=== PATIENT | male | born 1950 | race African-American/Black ===

== ENCOUNTER 2021-11-05 10:14 | Outpatient (CLI) | payer MEDICARE, MEDICAID, SELFPAY ==
--- NOTE | 2021-11-05 11:30 | NEURO_ITS ---
Impression: # Complains of pain in right hand status post neck surgery, inability to extend fingers. # Normal nerve conduction study with asymmetrical F-waves. # No Carpal Tunnel Syndrome. # Needle/EMG exam revealed neurogenic changes in extensor compartment, particularly extensor digitorum communis; could be related to damage at C6-C8; No fibrillations noted. Nerve Conduction Studies Anti Sensory Summary Table Stim Site NR Peak (ms) P-T Amp (?V) Site1 Site2 Delta-P (ms) Dist (cm) [place] (m/s) Right Median Anti Sensory (2-3nd Digit) Wrist 3.3 13.3 Wrist 2-3nd Digit 3.3 14.0 42 Wrist 3.2 17.5 Wrist 2-3nd Digit 3.3 14.0 42 Right Radial Anti Sensory (Base 1st Digit) Wrist 2.4 10.9 Wrist Base 1st Digit 2.4 0.0 Right Ulnar Anti Sensory (5th Digit) Wrist 2.9 23.5 Wrist 5th Digit 2.9 14.0 48 Motor Summary Table Stim Site NR Onset (ms) O-P Amp (mV) Site1 Site2 Delta-0 (ms) Dist (cm) Francisco (m/s) Right Median Motor (Abd Poll Brev) Wrist 3.6 2.3 Elbow Wrist 4.9 29.0 59 Elbow 8.5 4.3 Right Ulnar Motor (Abd Dig Minimi) Wrist 3.4 4.1 A Elbow Wrist 5.4 32.0 59 A Elbow 8.8 2.3 F Wave Studies NR F-Lat (ms) L-R F-Lat (ms) Right Median (Mrkrs) (Abd Poll Brev) 31.23 Right Ulnar (Mrkrs) (Abd Dig Min) 29.54 EMG Side Muscle Nerve Root Ins Act Fibs Amp Dur Recrt Comment Right 1stDorInt Ulnar C8-T1 Nml Nml Nml Nml Nml Right Ext Indicis Radial (Post Int) C7-8 Nml Nml Nml Nml Nml Right Ext Digitorum Radial (Post Int) C7-8 Nml Nml Nml Nml Nml Right BrachioRad Radial C5-6 Nml Nml Nml Nml Nml Right PronatorTeres Median C6-7 Nml Nml Nml Nml Nml Right Abd Poll Brev Median C8-T1 Nml Nml Nml Nml Nml MTDD
== END 2021-11-05 10:15 | disposition home or self-care (01) ==
LOC: ANHNEURO 10:18
PROVIDERS: Visit Provider Orthopaedic Surgery Hand Surgery
DX: M79.641 Pain in right hand (principal)
CPT/HCPCS: 95886; 95909

== ENCOUNTER 2025-07-25 01:14 | Emergency (ER) | payer MEDICARE, BC, SELFPAY ==
--- OUTSIDE RECORDS SUMMARY | 2015-06-21 05:30 | XMS_ITS | Continuity of Care Document ---
Author Organization [facility] Address [address] [place] [address] Phone Care Team Providers Care Neurosurgical Nurse Name Role Phone Unavailable Unavailable Unavailable Medications Medication Instructions Dosage Effective Dates (start - stop) Status Comments amoxicillin 500 mg capsule take 1 capsule by ORAL route every 8 hours 500 MG - Active Motrin 800 mg tablet take 1 tablet by ORAL route once with food 800 MG - Active Motrin 800 mg tablet take 1 tablet (800MG) by ORAL route every - 6 hours with food 800 MG - Active ibuprofen 800 mg tablet take 1 tablet by oral route every 6 hours with food - No Longer Active clindamycin 150 mg capsule take 1 capsule by oral route every 6 hours 150 MG - No Longer Active Procedures Procedure Date Periapical Radiographic, first Image Jun Limit oral eval problem focused 015 Limit oral eval problem focused 013 Limit oral eval problem focused 012 Periapical first film Extraction erupted tooth or exposed root Advance Directives Directive Yes / No Effective Date File Name No Information Encounters Encounter Description Practice Location Reason(s) For Visit Diagnoses Date Provider Providers Copied on Encounter [employer] [facility] , [address], [place], [place], [id number], [place] tel:[phone] [facility] Encounter for dental exam and cleaning w abnormal findingsDental caries, unspecified 5 No Information [employer] [facility] , [address], [place], [place], [id number], [place] tel:[phone] [facility] Dental examination 3 No Information [facility] , [address], [place], [place], [id number], [place] tel:[phone] [facility] [place] Dental examination 2 No Information Family History Family Member Type Diagnosis Age At Onset No Information Payers Payer name Insurance type Covered republican ID Authoriza tion(s) No Information Social History Type Description Quantity Date Captured Comments Sex Male Smoking Status No Information Chief Complaint And Reason For Visit No Information Reason For Referral Reason For Referral No Information History Of Present Illness Encounter Date Complaint History Of Prese nt Illness No Information Functional Status Date Functional Assessmen t No Information Instructions Date Instruction Additional Infor mation No Information Assessments Type Assessment Date No Information Patient Care Teams Name Effective Dates (start - stop) Status Members No Information
--- OUTSIDE RECORDS SUMMARY | 2020-08-10 12:45 | XMS_ITS | Encounter Summary ---
Author Organization 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 Hospital Encounter Self [facility] [address] [place] [address] [place] [address] [place] [address] [place] [address] [place] [address] [employer] Social History Tobacco Use Types Packs/Day Years Used Date Smoking Tobacco: Former Cigarettes 0.3 15 1 987 - 2002 Smokeless Tobacco: Never Comments:on and off Alcohol Use Standard Drinks/Week Comments Yes 16 (1 standard drink = 0.6 oz pu re alcohol) AUDIT-C Answer Date Recorded Frequency of Alcohol Consumption 2-3 times a wee k 10/28/2019 Average Number of Drinks Not on file 020 Frequency of Binge Drinking Not on file 03/2020 Sex and Gender Information Value Date Recorded Sex Assigned at Not on file Legal Sex Male 6:16 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
--- NOTE | ~2025-07-25 | CT_ITS ---
CT abdomen pelvis w con Clinical History: sacral ulcers . Comparison: None Technique: Axial images lung bases to symphysis pubis IV contrast information: 100 mL Omnipaque 350 Coronal, sagittal reformats CT images acquired with automatic exposure control for dose reduction DLP: 676 mGy-cm Findings: Lung bases: Clear. Visualized heart and pericardium: Unremarkable. Liver: Unremarkable. Gallbladder: Unremarkable. Spleen: Unremarkable. Pancreas: Unremarkable. Adrenal glands: Bilateral calcifications consistent with prior insult. Small hypodense focus left side Kidneys: Right kidney- No hydronephrosis. No renal stones. Left kidney- No hydronephrosis. No renal stones. Distal esophagus/stomach: Small sliding hiatal hernia. Small bowel loops: Normal caliber and wall thickness. Colon: Normal caliber and wall thickness. Normal RLQ appendix. Nodes: No enlarged nodes. Peritoneum: No ascites. No free air. Urinary bladder: Unremarkable. Prostate: Unremarkable. Bones: Erosions along coccyx. Soft tissues: Sacral decubitus wound with scattered subcutaneous gas and inflammation. No discrete abscess. Aorta: No aneurysm or dissection. Atherosclerotic disease. IVC: Unremarkable. Main portal vein/SMV/splenic vein: Patent. IMPRESSION: 1. Large sacral decubitus wound with soft tissue emphysema highly worrisome for infection. No associated abscess. 2. Coccygeal erosions; acute and/or chronic osteomyelitis. 3. Additional findings as above. Reviewed, dictated and finalized at [facility] R. SAWYER IMPRESSION: 1. Large sacral decubitus wound with soft tissue emphysema highly worrisome fo r infection. No associated abscess. 2. Coccygeal erosions; acute and/or chronic osteomyelitis. 3. Additional findings as above.
--- NOTE | ~2025-07-25 | XR_ITS ---
Examination: XR chest 1V portable Clinical History: weakness Comparison: None Technique: Portable AP Findings: Heart size normal. Lungs clear. Relative hyperlucency left hemithorax likely merely rotational. No acute bony abnormality. IMPRESSION: 1. No acute cardiopulmonary findings given portable technique. Reviewed, dictated and finalized at location R. FIELD WORKER
[2025-07-25 01:14] VITALS: BP 174/91; PULSE 128; RESP 21; TEMP 36.3; O2SAT 97
--- NOTE | 2025-07-25 04:56 | ECG_ITS ---
Test Date: 2025-07-25 06:31:16 Measurements Intervals [place] Rate: 119 P: 72 WV: 135 QRS: 53 QRSD: 84 T: 70 QT: 339 QTc: 478 Interpretive Statements SINUS TACHYCARDIA POSSIBLE LEFT ATRIAL ENLARGEMENT [-0.1mV P-WAVE IN V1/V2] NONSPECIFIC T-WAVE ABNORMALITY ABNORMAL RHYTHM ECG No previous ECG available for comparison Electronically Signed On 07-25-2025 06:40:51 MEDICAL EDUCATION COORDINATOR by Lorin Acuna M.D.
[2025-07-25 05:42] LABS: Hematocrit 47.5 % (42.0-52.0); Hemoglobin 15.5 g/dL (14.0-18.0); Immature Granulocyte Percent A 0.7 % (0-0.5); Lymphocytes Absolute Auto 1.01 K/mm3 (0.9-3.2); Mean Corpuscular HGB Conc 32.6 g/dl (32-36); Mean Corpuscular Hemoglobin 30.8 pg (26-34); Mean Corpuscular Volume 94.2 fl (80-100); Nucleated Red Blood Cells Absolute Auto 0.000 K/mm3 (0.0-0.012); Nucleated Red Blood Cells Perc 0.0 % (0.0-0.2); Platelet Count Result 239 k/mm3 (150-375); Red Blood Count 5.04 M/mm3 (4.6-6.20); White Blood Count 20.1 K/mm3 (4.5-10.0)
[2025-07-25 06:00] LABS: Anisocytosis 1+; Poikilocytosis 2+; Tear Drop Cells 1+
[2025-07-25 06:01] LABS: Schistocytes None Seen
[2025-07-25 06:02] LABS: Add Urine Microscopic? YES; Appearance Urine Clear (Clear); Glucose Urine UA 3+ mg/dL (Negative); Leukocyte Esterase Ur Negative LEU/UL (Negative); Need Manual Microscopic Reviewed; Nitrate Urine Negative (Negative); Specific Grav Ur 1.026 (1.001-1.035)
--- NOTE | 2025-07-25 06:10 | ED.FALL ---
HPI - Fall General Chief Complaint: Fall <Dexter Walker MD - Last Filed: 07/25/25 06:53> Stated Complaint: Fall out of w/c <Dexter Walker MD - Last Filed: 07/25/25 06:53> Time Seen by Provider: 07/25/25 05:49 <Dexter Walker MD - Last Filed: 07/25/25 06:53> History of Present Illness HPI Narrative: 74-year-old male presenting from home via EMS for concerns of a fall and not able to get up. Patient states he is wheelchair-bound and has not moved out of his wheelchair for several months. He has evidence of ulcerative tissue on his backside and in the sacrum with bleeding wounds. Patient was only down for approximately 20 minutes when he got EMS to call. Did not hit his head or lose consciousness and not any blood thinners. States he has a history of diabetes and low back pain chronically. States he occasionally gets home healthcare but they have not been coming to visit him recently. States he has been sitting in his own stool and been incontinent of urine. Endorses history of peripheral neuropathy and lymphedema making him bed/wheelchair bound. EMS report states that they were supposed to be a family preservation caseworker checking in on the patient but unknown last time he was visited her checked on. Patient endorses pain to his bottom with dried blood irritation with open sores on his sacrum and was covered in his own feces on EMS arrival. Denies any fever, chills, chest pain, shortness of breath, headache, vision change. Not taking any medications presently. <Dexter Walker MD - Last Filed: 07/25/25 06:53> Related Data Allergies/Adverse Reactions: Allergies Allergy/AdvReac Type Severity Reaction Status Date / Time No Known Allergies Allergy Verified 07/25/25 06:25 <Dexter Walker MD - Last Filed: 07/25/25 06:53> Review of Systems Review of Systems: As reviewed above in HPI <Dexter Walker MD - Last Filed: 07/25/25 06:53> Exam Narrative: GENERAL: [Well-appearing, well-nourished, and in no acute distress.] HEAD: [Normocephalic, atraumatic.] EYES: [PERRLA and EOMI.] ENT: Nares clear, no rhinorrhea or epistaxis. Mucous membranes moist. NECK: Supple. CHEST: [Clear to auscultation. No respiratory distress.] HEART: [Regular rate and rhythm]. No murmur heard. [Normal peripheral pulses.] ABDOMEN: [Soft, nondistended], [nontender], [No rigidity or guarding] EXTREMITIES: Normal range of motion. Chronic tree trunk appearing lymphedema bilaterally. SKIN: Sacral wounds with macerated tissue and bleeding edges but no purulent drainage. Covered in feces that was cleaned at bedside. Small open lateral wounds near the buttock but no purulent drainage or active bleeding. No scrotal erythema or sores. Bilateral chronic appearing lymphedema to the legs. With the tree trunk appearance to legs. NEURO: [No focal deficits]. Alert and oriented [x3.] PSYCH: [Normal mood and affect.] <Dexter Walker MD - Last Filed: 07/25/25 06:53> Course Reevaluation(s) Reevaluation #1: Patient signed out to me pending imaging, likely sepsis from decub ulcers. CT showing osteo, possibly soft tissue emphysema about the decubitus ulcer. I did personally check the wounds again, I do not feel any crepitus, patient not having severe tenderness, overall the patient does not seem consistent with necrotizing fasciitis however I did add on vancomycin to the antibiotics, and plan to transfer the patient to higher level of care/for infectious diseases. I have discussed this with the patient was agreeable, he would like to go to a [facility] facility, discussed with transfer center, accepted at [facility] by Dr. Bee. <Vicki Jordan MD - Last Filed: 07/25/25 09:47> Vital Signs Vital signs: Vital Signs Temperature 97.3 F L 07/25/25 01:14 Pulse Rate 128 H 07/25/25 01:14 Respiratory Rate 21 H 07/25/25 01:14 Blood Pressure 174/91 H 07/25/25 01:14 Pulse Oximetry 97 07/25/25 01:14 Oxygen Delivery Room Air 07/25/25 01:14 Temperature 98 F 07/25/25 07:18 Pulse Rate 124 H 07/25/25 07:18 Respiratory Rate 23 H 07/25/25 07:18 Blood Pressure 139/55 L 07/25/25 07:18 Pulse Oximetry 98 07/25/25 07:18 Oxygen Delivery Room Air 07/25/25 01:14 <Dexter Walker MD - Last Filed: 07/25/25 06:53> Vital Signs Temperature 97.3 F L 07/25/25 01:14 Pulse Rate 128 H 07/25/25 01:14 Respiratory Rate 21 H 07/25/25 01:14 Blood Pressure 174/91 H 07/25/25 01:14 Pulse Oximetry 97 07/25/25 01:14 Oxygen Delivery Room Air 07/25/25 01:14 Temperature 98 F 07/25/25 07:18 Pulse Rate 124 H 07/25/25 07:18 Respiratory Rate 23 H 07/25/25 07:18 Blood Pressure 139/55 L 07/25/25 07:18 Pulse Oximetry 98 07/25/25 07:18 Oxygen Delivery Room Air 07/25/25 01:14 <Vicki Jordan MD - Last Filed: 07/25/25 09:47> MDM - Fall MDM Narrative Medical decision making narrative: 74-year-old male presenting from home via EMS for concerns of a fall and not able to get up. Patient states he is wheelchair-bound and has not moved out of his wheelchair for several months. He has evidence of ulcerative tissue on his backside and in the sacrum with bleeding wounds. Patient was only down for approximately 20 minutes when he got EMS to call. Did not hit his head or lose consciousness and not any blood thinners. States he has a history of diabetes and low back pain chronically. States he occasionally gets home healthcare but they have not been coming to visit him recently. States he has been sitting in his own stool and been incontinent of urine. Endorses history of peripheral neuropathy and lymphedema making him bed/wheelchair bound. EMS report states that they were supposed to be a family preservation caseworker checking in on the patient but unknown last time he was visited her checked on. Patient endorses pain to his bottom with dried blood irritation with open sores on his sacrum and was covered in his own feces on EMS arrival. Denies any fever, chills, chest pain, shortness of breath, headache, vision change. Not taking any medications presently. Sacral wounds with macerated tissue and bleeding edges but no purulent drainage. Covered in feces that was cleaned at bedside. Small open lateral wounds near the buttock but no purulent drainage or active bleeding. No scrotal erythema or sores. Bilateral chronic appearing lymphedema to the legs. With the tree trunk appearance to legs. Patient is tachycardic, afebrile. Mildly tachypneic but saturating 97% on room air. Mildly hypertensive. Concern presently is for active infection given that he has been sitting in his own urine and feces and having open macerated tissues in his sacral wounds. Laboratory studies obtained, septic bundle initiated. Patient started empirically on Zosyn. Given 30 cc/kg fluid bolus of resuscitative LR and CT scan of the abdomen pelvis was obtained as well as a chest x-ray and further workup. Patient will be admitted after completion of the ER workup. Patient care signed over to morning physician Dr. Jordan pending completion of workup and admission. <Dexter Walker MD - Last Filed: 07/25/25 06:53> Medical Records Attestation: I reviewed the patient's medical records. <Dexter Walker MD - Last Filed: 07/25/25 06:53> Lab Data Attestation: I reviewed the patient's lab results. <Dexter Walker MD - Last Filed: 07/25/25 06:53> Result diagrams: 07/25/25 05:27 07/25/25 07:49 <Dexter Walker MD - Last Filed: 07/25/25 06:53> Labs: Lab Results 07/25/25 07/25/25 Range/Units 05:27 07:49 WBC 20.1 H (4.5-10.0) K/mm3 RBC 5.04 (4.6-6.20) M/mm3 Hgb 15.5 (14.0-18.0) g/dL Hct 47.5 (42.0-52.0) % MCV 94.2 (80-100) fl MCH 30.8 (26-34) pg MCHC 32.6 (32-36) g/dl RDW 12.9 (11.5-14.5) % Plt Count 239 (150-375) k/mm3 MPV 9.6 (7.4-10.4) fl Immature Gran % (Auto) 0.7 H (0-0.5) % Neut % (Auto) 85.9 H (45.5-73.1) % Lymph % (Auto) 5.0 L (18.3-44.2) % [place] % (Auto) 8.0 (2.6-8.5) % Eos % (Auto) 0.1 (0-4.4) % Baso % (Auto) 0.3 (0.2-1.2) % Lymph # (Auto) 1.01 (0.9-3.2) K/mm3 [place] # (Auto) 1.6 H (0.1-0.6) K/mm3 Eos # (Auto) 0.0 (0-0.3) K/mm3 Baso # (Auto) 0.1 (0.0-0.1) K/mm3 Abs Immat Gran (auto) 0.15 H (0.00-0.031) K/mm3 Absolute Neuts (auto) 17.2 H (1.3-6.7) K/mm3 Absolute Nucleated RBC 0.000 (0.0-0.012) K/mm3 Band Neutrophils % Not Reportable Nucleated RBC % 0.0 (0.0-0.2) % Platelet Estimate Adequate (Adequate) Large Platelets Present Poikilocytosis 2+ Anisocytosis 1+ Tear Drop Cells 1+ Schistocytes None seen PT 15.9 H (11.1-14.7) Seconds INR 1.3 APTT 30.3 (22.3-36.8) Seconds Sodium Cancelled 125 L Potassium Cancelled 4.9 Chloride Cancelled 91 L Carbon Dioxide Cancelled 22 Anion Gap Cancelled 12 BUN Cancelled 31 H Creatinine Cancelled 0.78 Estim Creat Clear Calc Cancelled 80 Estimated GFR Cancelled > 60 Glucose Cancelled 351 H Lactic Acid 3.6 H (0.7-2.0) mmol/L Calcium Cancelled 8.9 Total Bilirubin Cancelled 1.0 AST Cancelled 46 ALT Cancelled 26 Alkaline Phosphatase Cancelled 73 Total Creatine Kinase Cancelled 2457 H C-Reactive Protein 16.0 H (<1.0) mg/dL Total Protein Cancelled 6.9 Albumin Cancelled 3.4 L Urine Color Yellow (Yellow) Urine Appearance Clear (Clear) Urine pH 5.5 (5.0-9.0) Ur Specific [place] 1.026 (1.001-1.035) Urine Protein 1+ H (Negative) mg/dL Urine Glucose (UA) 3+ H (Negative) mg/dL Urine Ketones 1+ H (Negative) mg/dL Ur Blood (Man) 2+ H (Negative) Urine Nitrate Negative (Negative) Urine Bilirubin Negative (Negative) Urine Urobilinogen 1.0 (<2.0) mg/dL Add Ur Microanalysis Reviewed Leukocyte Esterase Rfl Negative (Negative) NADIYA/UL Urine RBC 0-2 (0-2) /hpf Urine WBC 0-5 (0-3) /hpf Ur Squamous Epith Cells None seen (Few) /hpf Urine Bacteria None seen /hpf Urine Casts 3-5 <Dexter Walker MD - Last Filed: 07/25/25 06:53> Lab Results 07/25/25 07/25/25 Range/Units 05:27 07:49 WBC 20.1 H (4.5-10.0) K/mm3 RBC 5.04 (4.6-6.20) M/mm3 Hgb 15.5 (14.0-18.0) g/dL Hct 47.5 (42.0-52.0) % MCV 94.2 (80-100) fl MCH 30.8 (26-34) pg MCHC 32.6 (32-36) g/dl RDW 12.9 (11.5-14.5) % Plt Count 239 (150-375) k/mm3 MPV 9.6 (7.4-10.4) fl Immature Gran % (Auto) 0.7 H (0-0.5) % Neut % (Auto) 85.9 H (45.5-73.1) % Lymph % (Auto) 5.0 L (18.3-44.2) % [place] % (Auto) 8.0 (2.6-8.5) % Eos % (Auto) 0.1 (0-4.4) % Baso % (Auto) 0.3 (0.2-1.2) % Lymph # (Auto) 1.01 (0.9-3.2) K/mm3 [place] # (Auto) 1.6 H (0.1-0.6) K/mm3 Eos # (Auto) 0.0 (0-0.3) K/mm3 Baso # (Auto) 0.1 (0.0-0.1) K/mm3 Abs Immat Gran (auto) 0.15 H (0.00-0.031) K/mm3 Absolute Neuts (auto) 17.2 H (1.3-6.7) K/mm3 Absolute Nucleated RBC 0.000 (0.0-0.012) K/mm3 Band Neutrophils % Not Reportable Nucleated RBC % 0.0 (0.0-0.2) % Platelet Estimate Adequate (Adequate) Large Platelets Present Poikilocytosis 2+ Anisocytosis 1+ Tear Drop Cells 1+ Schistocytes None seen PT 15.9 H (11.1-14.7) Seconds INR 1.3 APTT 30.3 (22.3-36.8) Seconds Sodium Cancelled 125 L Potassium Cancelled 4.9 Chloride Cancelled 91 L Carbon Dioxide Cancelled 22 Anion Gap Cancelled 12 BUN Cancelled 31 H Creatinine Cancelled 0.78 Estim Creat Clear Calc Cancelled 80 Estimated GFR Cancelled > 60 Glucose Cancelled 351 H Lactic Acid 3.6 H (0.7-2.0) mmol/L Calcium Cancelled 8.9 Total Bilirubin Cancelled 1.0 AST Cancelled 46 ALT Cancelled 26 Alkaline Phosphatase Cancelled 73 Total Creatine Kinase Cancelled 2457 H C-Reactive Protein 16.0 H (<1.0) mg/dL Total Protein Cancelled 6.9 Albumin Cancelled 3.4 L Urine Color Yellow (Yellow) Urine Appearance Clear (Clear) Urine pH 5.5 (5.0-9.0) Ur Specific [place] 1.026 (1.001-1.035) Urine Protein 1+ H (Negative) mg/dL Urine Glucose (UA) 3+ H (Negative) mg/dL Urine Ketones 1+ H (Negative) mg/dL Ur Blood (Man) 2+ H (Negative) Urine Nitrate Negative (Negative) Urine Bilirubin Negative (Negative) Urine Urobilinogen 1.0 (<2.0) mg/dL Add Ur Microanalysis Reviewed Leukocyte Esterase Rfl Negative (Negative) NADIYA/UL Urine RBC 0-2 (0-2) /hpf Urine WBC 0-5 (0-3) /hpf Ur Squamous Epith Cells None seen (Few) /hpf Urine Bacteria None seen /hpf Urine Casts 3-5 <Vicki Jordan MD - Last Filed: 07/25/25 09:47> Discharge Plan Discharge Clinical Impression: Sepsis, Sacral wound, Adult failure to thrive, Debility <Dexter Walker MD - Last Filed: 07/25/25 06:53> Patient Disposition: Still a Patient <Dexter Walker MD - Last Filed: 07/25/25 06:53> Condition: Stable <Dexter Walker MD - Last Filed: 07/25/25 06:53> Patient Language: Telugu <Dexter Walker MD - Last Filed: 07/25/25 06:53> Follow-up/Referrals: UNKNOWN,DOCTOR [Non-Staff] <Dexter Walker MD - Last Filed: 07/25/25 06:53>
--- OUTSIDE RECORDS SUMMARY | 2025-07-25 06:17 | XMS_ITS | Encounter Summary ---
Author Organization [facility] Healthcare Address [address] [place] [address] Care Team Providers Care Casting Technician Name Role Phone Jason Haas MD Primary Care Provider Elvira Hernandez NP Unavailable Alyssa Milligan RN Unavailable [phone] Reason for Visit * Reason Onset Date Comments Medical Question/Miscellaneous 07/07/2025 Encounter Details Date Type Department Care Team (Late st Contact Info) Description 07/07/2025 Telephone [facility] Medical Group Primary Care at [address] [address] Jason Haas MD [address] [place] [address] [address] [place] [address] Medical Question/Miscellaneous Social History Tobacco Use Types Packs/Day Years Used Date Smoking Tobacco: Former Smokeless Tobacco: Never OASIS D0700: Social Isolation Answer Da te Recorded Frequency of experiencing loneliness or isolatio n Never 09/29/2024 OASIS A1250: Transportation Answer Date Recorded Lack of Transportation (Medical) No 09/29/2024 Lack of Transportation (Non-Medical) No 09/29/2024 Patient Unable or Declines to Respond No 09/29/2024 OASIS B1300: Health Literacy Answer Rc e Recorded Frequency of needing help to read materials from doctor or pharmacy Never 09/29/2024 [facility] Utilities Answer Date Recorded In the past 12 months has th e electric, gas, oil, or water [employer] threatened to shut off services in your home? No 04/18/2025 Social Connection and Isolation Panel Answer Date Recorded In a typical week, how many times do you talk on the phone with family, friends, or neighbors? More than three times a week 04/18/2025 How often do you get togethe r with friends or relatives? More than three times a week 04/18/2025 How often do you attend chur ch or alevism services? Never 04/18/2025 Do you belong to any clubs o r organizations such as mandaeism groups, unions, fraternal or athletic groups, or school groups? No 04/18/2025 How often do you attend meet ings of the clubs or organizations you belong to? Never 04/18/2025 Are you , , di vorced, , never , or living with a partner? Never 04/18/2025 AUDIT-C Answer Date Recorded Q1: How often do you have a drink containing alc ohol? 2-3 times a week 03/21/2021 Q2: How many drinks containi ng alcohol do you have on a typical day when you are drinking? 1 or 2 03/21/2021 Q3: How often do you have si x or more drinks on one occasion? Never 03/21/2021 Overall Financial Resource Strain (CARDIA) Answe r Date Recorded How hard is it for you to pa y for the very basics like food, housing, medical care, and heating? Not very hard 04/18/2025 PHQ-2 Answer Date Recorded PHQ-2 Total Score (If total score is 3 or more points, staff should administer the PHQ-9) 0 02/28/2025 Hunger Vital Sign Answer Date Recorded Within the past 12 months, y ou worried that your food would run out before you got the money to buy more. Never true 04/18/20 25 Within the past 12 months, t he food you bought just didn't last and you didn't have money to get more. Never true 04/18/2025 PRAPARE - Transportation Answer Date Re corded In the past 12 months, has l ack of transportation kept you from medical appointments or from getting medications? No 03/22 In the past 12 months, has l ack of transportation kept you from meetings, work, or from getting things needed for daily living? No 04/18/2025 Housing Stability Vital Sign Answer Rc e Recorded In the last 12 months, was t here a time when you were not able to pay the mortgage or rent on time? No 04/18/2025 In the past 12 months, how m any times have you moved where you were living? 0 04/18/2025 At any time in the past 12 m [facility], were you homeless or living in a senior living (including now)? No 04/18/2025 Sex and Gender Information Value Date Recorded Sex Assigned at Not on file Legal Sex Male 9:54 AM CDT Gender Identity Not on file Sexual Orientation Not on file documented as of this encounter Miscellaneous Notes * Telephone Encounter - Amy Serna - 07/07/2025 9:19 AM CDT Medical Question/Miscellaneous Caller???s Concern: Patient called regarding receiving letter for no show, patient stated he didn'tknow his appointments wasn't cancelled, patient stated he had a Health Care Worker and she was suppose to cancel his appointment, patient stated the worker hasn't showed up for work in two weeks patient stated he's been having issues as well she was suppose to excelsior picker his medication and it took herthree weeks to get his medication, AC offered to reschedule missed appointment, patient stated he doesn't have a worker he will call back to reschedule once he receives a new Health Care Worker, please advise. Does message need to be routed? Yes-FYI Only documented in this encounter Plan of Treatment Not on file documented as of this encounter Goals Goal Patient Goal Type Associated Problems Recent Progress Patient-Stated? Author Diabetes Goal - Patient verbalizes knowledge and ability to manage diabetes ACO Care Management Alyssa De La Torre, RN Note: Problem: Knowledge deficit - Diabetes Interventions: - Provide educational materials specific to patient needs. Search Epic Clinical References for patient-specific educational needs. These can be printed & mailed or sent to patient via [employer]. - Review Diabetes folder in Teams for applicable resources. - Follow up within 1-2 weeks of mailing to review materials and ensure patient understands information provided. Diabetes Goal - Patient is knowledgeable about causes of hyperglycemia and how to prevent and treat the problem ACO Care Management Alyssa De La Torre, RN Note: Problem: Red Flag education needed - Hyperglycemia Interventions: - Provide education on common causes of hyperglycemia: skip dose of diabetic medicine, eat more than usual, are less active than usual, are under stress or sick. - Provide education on common symptoms of hyperglycemia: excessive thirst, excessive hunger, increased urination, sleepiness, blurry vision, slow healing. - Assess patient's specific reasons for hyperglycemia and barriers to following diabetic regimen, if applicable. - Review diabetes red flags related to recognizing and reporting blood sugars >250 for 2 consecutive days or for 2 consecutive readings in a row. - Review patients diabetes care plan and medication orders with patient. Outreach to provider to obtain diabetes plan if patient is unsure or if there are any medication discrepancies. Ensure patient is taking the correct amount of medication/insulin. - Review [facility] Clinical References: Diabetic Hyperglycemia; Type 2 Diabetes in Adults; Type 2 Diabetes in the Older Adult. These can be printed and mailed or sent to patient via [employer]. - Review the Diabetes folder in teams for available resources: High Blood Sugar Fact Sheet. Diabetes Goal - Patient is knowledgeable about causes of hypoglycemia and how to prevent and treat the problem ACO Care Management Alyssa De La Torre, RN Note: Problem: Red Flag education needed - Hypoglycemia Interventions: - Provide education on common causes of hypoglycemia: take diabetic medicine without eating enough, take too much diabetic medicine, are more active than usual. - Provide education on common symptoms of hypoglycemia: Shakiness, Sweatiness, Dizziness, hunger, sudden behavior change, weakness, sleepiness, headache, nervousness. - Provide education on home treatments for hypoglycemia: 1. Eat or drink something with 15 grams of carbs (4oz juice, 4 glucose tablets, or candies) 2. Recheck blood sugar in 15 minutes. If still low, eat another 15 grams of carbs - Assess patient's specific reasons for hypoglycemia and barriers to following diabetic regimen, if applicable. - Review importance of identifying repeated hypoglycemic episodes and reporting to their provider / CM. - Review patients' diabetes care plan and medication orders with patient. Outreach to provider to obtain diabetes plan if patient is unsure or if there are any medication discrepancies. - Review [facility] Clinical References: Hypoglycemia in a Person with Diabetes; Type 2 Diabetes in Adults; Type 2 Diabetes in the Older Adult. These can be printed and mailed or sent to patient via [employer]. - Review the Diabetes folder in teams for available resources: Low Blood Sugar Fact Sheet. Diabetes Goal - Coordination with diabetes provider will help improve patient self management status ACO Care Management Alyssa De La Torre RN Note: Problem: Diabetes Nonadherence: Notify Provider Interventions: - Create a Telephone encounter with documentation of the problem and possible solutions (if applicable). - Route the telephone encounter to Clinical Pool & yourself (.me) to allow monitoring of the message. - Follow up with patient with any provider instructions. - Update plan of care as necessary. Diabetes Goal - Patient is knowledgeable about managing diabetes during sick days, when worsening and how to respond ACO Care Management Alyssa De La Torre, RN Note: Problem: Red Flag education needed - Sick Day Rules Interventions: - Assess patient status: signs & symptoms of sickness, blood sugar range while sick, what patient has been doing so far to manage sickness at home. - Provide education for when to call your care team: Blood sugar <70, Blood sugar >240 for >6 hours, you can't eat or drink for 4 hours, fever 101.5 or higher, symptoms of severe stomach pain, chest pain or difficulty breathing, vomiting or diarrhea for >6 hours, or your illness lasts more than 24 hours. - Review sick day rules: Check blood sugar every 2-4 hours or more often if readings are increasing rapidly. Continue to take your diabetes medications, even if you are having nausea or vomiting. Be sure to notify provider if you are unable to keep anything down for over 4 hours. Drink extra fluids (no caffeine), about 8oz every hour. Examples are fruit juice, clear soup or sports drinks. Try to eat your normal amounts and types of foods. If not possible, try to eat foods that are gentle on the stomach, like crackers, gelatin, applesauce, toast. Do not take OTC medications without discussing with your provider. - Review the following [facility] Clinical References: Managing Diabetes During Sick Days. This can be printed and mailed or sent to patient via [employer]. Diabetes Goal - Patient will obtain and follow a diabetic action plan ACO Care Management Alyssa De La Torre RN Note: Problem: Inadequate health maintenance related to absence of diabetes action plan Interventions: - Refer to the Diabetes Folder in teams: [facility] Action Plan DM Flyer. Review contents with patient. Send to patient/caregiver via mail or [employer]. - Provide education regarding signs of low and high blood sugar and how patient should respond to both situations. Diabetes Goal - Patient will improve their knowledge of DM and will be motivated to try to better manage at home ACO Care Management Alyssa De La Torre RN Note: Problem: Ability to self-manage diabetes Interventions: - Assess ability to self manage: check blood sugars, administer/take medications, monitor for red flags, adhere to prescribed diet, and perform physical activity as able. - Assess for barriers to care and provided education/resources needed. - Encourage patient to log their blood sugar results and review for trends. - Refer to [facility] Clinical References: How to Check Your Blood Sugar; Type 2 Diabetes Management for Adults; Diabetes Type 1: Management; Diabetic Hyperglycemia; etc. These can be printed & mailed or sent to patient via [employer]. - Refer to Diabetes folder in Teams: Blood Sugar Log; Checking Your Blood Sugar; Living Well With Diabetes; When to Call the Doctor, etc. Diabetes Goal - Patients' medication adherence will improve with applicable education/resources ACO Care Management Alyssa De La Torre, ROSARIO Note: Problem: Diabetes Medication Nonadherence Interventions: - Assess barriers to following the prescribed medication plan. Provide education/resources to reduce these barriers. - Review the Diabetes folder in Teams for available educational resources for this patient. - Refer to [facility] Clinical References: Type 2 Diabetes Management in Adults or Type 2 Diabetes in Older Adults; Non Insulin Pen Devices for Diabetes, etc. These can be mailed to patient or sent to their MyChart (if applicable). - Schedule follow-up call to review these materials to ensure understanding. - Make a plan with the patient to improve medication adherence. - Notify provider if patient continues this nonadherent behavior. Diabetes Goal - Patient will verbalize understanding of the education provided regarding Diabetic Medications ACO Care Management Alyssa De La Torre RN Note: Problem: Knowledge Deficit - Diabetic Medications Interventions: - Assess patients' knowledge of diabetic medications to identify gaps in knowledge. - Provide educational materials specific to patient needs. Search Epic Clinical References for patient-specific educational needs. These can be printed & mailed or sent to patient via [employer]. - Review the Diabetes folder in Teams for available resources: Medications and Prescription Savings Programs Folder. - Schedule follow-up calls to review these materials with patient to ensure understanding. ACO CC Goal - Patient will increase compliance with prescribed medications ACO Care Management Alyssa De La Torre RN Note: Problem: Medication non-adherence Interventions: - Address any barriers to taking medications as ordered. Coordinate with appropriate personnel (SW, physician, pharmacist, etc.) to help increase compliance with medication regimen. - Review with patient/caregiver the medication schedule in detail. - Review when to call their physician for potential medication complications and ensure they verbalize understanding of instructions. RITA General Goal - Patient / caregiver verbalizes lifestyle changes necessary to meet self-care needs and executes self-care activities to utmost capability ACO Care Management Alyssa De La Torre RN Note: Problem: At Risk for Self Care Deficit Interventions: - Assess patient's level of dependence on others along with current level of assistance being provided. - Use motivational interviewing to help guide the patient in accepting the needed amount of assisstance, as applicable. - Contact caregiver and assess their involvement with patient and level of assistance provided, as appropriate. - Assess appropriateness for Home Health. Start referral process if skilled need is present. - Encourage independent ADL's as appropriate. Ensure patient has the appropriate tools at home to be as independent as possible. - Provide fall prevention education to patient and caregiver. - Evaluate need for assistive devices. - Refer to if appropriate and patient is agreeable. RITA General Goal - Patient is knowledgeable about condition when worsening and how to respond ACO Care Management No Cunneen, Alyssa Quincy, RN Note: Problem: Knowledge deficit related to signs and symptoms of worsening condition Interventions: - Assess patient's level of understanding related to their condition(s), specific medications and self-management of their chronic conditions. - Send educational materials to patient related to their chronic condition, including signs and symptoms, self-management actions, and serious symptoms that require urgent medical intervention. - Assist patient/provider in developing an action plan for symptom management. - Review with patient weekly: s/s worsening condition, self-management actions to take, when to call CM or provider. ACO CC Goal - Patient verbalizes adherence to diet at least 80% of the time ACO Care Management No Alyssa Milligan, ROSARIO Note: Problem: At risk for inadequate nutrition related to nonadherence to prescribed diet Interventions: - Assess patient's level of understanding related to the prescribed diet - Assess patient's ability to obtain diet-specific foods and prepare meals - Provide verbal education regarding the prescribed diet - Provide education on healthy eating habits, portion control and importance of a balanced diet - Provide resources as applicable - Refer to O Director [employer] as appropriate documented as of this encounter Visit Diagnoses Not on filedocumented in this encounter Care Teams Casting Technician Relationship Specialty Start Date End Date Jason Haas MD [address] [facility] [address] [place] [address] PCP - General Family Medicine 06/03/24 Elvira Hernandez NP [address] [facility] [address] [place] [address] Nurse Practitioner Family Medicine 06/03/24 Alyssa Milligan RN [address] [place] [address] [address] [place] [address] Market Research Interviewer 04/14/25 documented as of this encounter
--- OUTSIDE RECORDS SUMMARY | 2025-07-25 06:17 | XMS_ITS | Clinical Summary ---
Author Organization [facility] HealthCare Care Team Providers Care Supplemental Nurse Name Role Phone Jason Haas MD Primary Care Provider Elvira Hernandez NP Unavailable Alyssa Milligan RN Unavailable [phone] Allergies No known active allergies Medications rosuvastatin (CRESTOR) 20 mg tabletIndications: hyperlipidemia Take 1 tablet (20 mg total) by mouth daily 90 tablet 1 06/28/20 24 Active polyethylene glycol (MIRALAX) 17 gram/dose bulk powderIndications: constipation Take 17 g by mouth daily as needed (constapation) Active candesartan (ATACAND) 8 mg tabletIndications: Hypertension associated with diabetes (HCC) Take 1 tablet (8 mg total) by mouth daily 30 tablet 11 08/02/20 24 025 Active baclofen (LIORESAL) 10 mg tablet Take 1 tablet (10 mg total) by mouth 3 (three) times a day 90 tablet 11 11/25/19 25 026 Active Additional Information Patient not taking.Reported on 04/18/2025 gabapentin (NEURONTIN) 300 mg capsule Take 1 capsule (300 mg total) by mouth 3 (three) times a day 90 capsule 5 11/25/19 25 Active olopatadine (PATANOL) 0.1 % ophthalmic solutionIndication s:Allergic Conjunctivitis Administer 1 drop into both eyes 2 (two) times a day as needed for allergies 15 mL 4 02/29/20 25 026 Active metFORMIN XR (GLUCOPHAGE XR) 500 mg 24 hr tabletIndications: type 2 diabetes mellitus Take 2 tablets (1,000 mg total) by mouth daily with breakfast 02/29/20 25 026 Active nut.tx.gluc.intol, lac-free,soy liquid Drink one can of Glucerna 6 times a day. 8am, 10am, 12pm, 2pm, 4pm, 6pm 237 mL 11 03/15/20 25 124 Active Additional Information Patient not taking.Reported on 04/18/2025 empagliflozin (Jardiance) 10 mg tabletIndications: Hypertension associated with diabetes (HCC) Take 1 tablet (10 mg total) by mouth daily 90 tablet 06/07/20 25 Active ascorbic acid (VITAMIN C) 500 mg tablet,chewableInd ications:Vitamin C Deficiency Take 1 tablet/chew tab (500 mg total) by mouth daily 06/06/20 24 025 Discontin ued(Thera py completed ) Active Problems Problem Noted Date Diagnosed Date Severe obesity 11/28/2024 Encounter for Medicare annual wellness exam 07/22 Assessment & Plan (08/02/2024 2:44 PM MINER HELPER): A(n) initial Annual [employer] Visit has been performed today. Kb Guillory is not up to date on screening tests. He is in need of Prostate screening, AAA Screening, and Colon cancer screening. He is not up to date on needed preventative vaccinations; He is in need of Zoster. We discussed healthy lifestyle habits, educational material has been given. Medications reviewed, changes documented as per the medical record and discussed with patient along with risks vs benefits. Specific topics reviewed: drugs, ETOH, and tobacco, importance of regular dental care, importance of regular exercise, importance of varied diet, limit TV, media violence, minimize junk food, and seat belts. Return in 3 months Encounter for medical examination to establish c are 08/19/2023 Cervical radiculopathy 12/30/2021 Hand cramps 11/11/2021 Type 2 diabetes mellitus without complications 0 06/20/2021 Assessment & Plan (06/03/2024 10:47 AM CDT): No medications on board, patient unsure of last A1c. Labs ordered. Cervical disc disorder with myelopathy of mid-cervical region 03/21/2021 Assessment & Plan (06/03/2024 3:34 PM CDT): Referral to home health for PT/OT. Also may benefit from Physical Medicine as mentioned in the Neurosurgeon's note from 2020. Referral placed. Patient has a mobility limitation that significantly impairs ability to participate in one or more mobility-related activities of daily living (MRADLs) such as toileting, feeding, dressing, grooming, and bathing in customary locations in the home. Patient's mobility limitation cannot be sufficiently resolved by the use of an appropriately fitted cane or walker. Use of a manual wheelchair will significantly improve the patient's ability to participate in MRADLs and the patient will use it on a regular basis in the home. Patient has a caregiver who is available, willing, and able to provide assistance with the wheelchair. Hyperlipidemia 03/19/2021 BMI 33.0-33.9,adult 01/02/2021 Preventative health care 01/02/2021 Hyponatremia 12/25/2020 Lipedema of lower extremity 11/26/2020 Multiple complications of type 2 diabetes [facility] 11/26/2020 Fall 08/02/2020 Myelopathy 08/01/2020 Hypertension associated with diabetes 02/17/2018 Assessment & Plan (06/03/2024 10:47 AM CDT): BP stable in office, no medication on board. Updated labs ordered Low back pain 02/17/2018 Low back pain with right-sided sciatica 12/19/19 15 Spondylolisthesis of lumbar region 12/18/2014 Assessment & Plan (06/03/2024 3:34 PM CDT): Referral to home health for PT/OT. Also may benefit from Physical Medicine as mentioned in the Neurosurgeon's note from 2020. Referral placed. Patient has a mobility limitation that significantly impairs ability to participate in one or more mobility-related activities of daily living (MRADLs) such as toileting, feeding, dressing, grooming, and bathing in customary locations in the home. Patient's mobility limitation cannot be sufficiently resolved by the use of an appropriately fitted cane or walker. Use of a manual wheelchair will significantly improve the patient's ability to participate in MRADLs and the patient will use it on a regular basis in the home. Patient has a caregiver who is available, willing, and able to provide assistance with the wheelchair. Encounters Date Type Department Care Team Description 07/19/2025 Telephone [facility] Primary Care at [address] [phone] Jason Haas MD Additional Services Or Orders 07/07/2025 Telephone [facility] Primary Care at [address] [phone] Jason Haas MD Medical Question/Miscellaneous 06/21/2025 [facility] [address] [phone] Daniela Pat MA 06/07/2025 [facility] Primary Care at [address] [phone] Jason Haas MD Additional Services Or Orders; Medical Question/Miscellaneous 05/31/2025 [facility] Primary Care at [address] [phone] Jason Haas MD Medication Request 05/31/2025 [facility] Primary Care at [address] [phone] Jason Haas MD Recommendation Request 05/25/2025 [facility] [address] [address] Mirella Lai MA from Last 3 Months Immunizations Immunization Administration Dates Next Due DTaP 11/03/2007 Hep A / Hep B 07/07/2017,01/04/2017,12/07/2016 Influenza, Quadrivalent, Hig h Dose, Preservative Free, Intrr 08/07/2020 Influenza, Trivalent, High D ose, Split, Preservative Free, Intramuscular 08/02/2024 Influenza, Unspecified 09/21/2023(Deferr ed: Patient Refused),09/21/2022(Deferred: Patient Refused) Pneumococcal Conjugate PCV 13 08/20/2021 Pneumococcal Conjugate Pcv20 08/02/2024 Tdap 12/07/2016 Surgical History Surgery Date Site/Laterality Comments NECK SURGERY 08/06/2020 Medical History Medical History Date Comments Type 2 diabetes mellitus Hypertension Quadriplegia, C5-C7 incomplete (HCC) Family History Medical History Relation Name Comments Stomach cancer Father Diabetes Mother Relation Name Status Comments Father Mother Social History Tobacco Use Types Packs/Day Years Used Date Smoking Tobacco: Former Smokeless Tobacco: Never Tobacco Cessation:Counseling Given: No OASIS D0700: Social Isolation Answer Da te [...] materials from doctor or pharmacy Never 09/29/2024 [facility] Utilities Answer Date Recorded In the past 12 months has e [employer], gas, oil, or water [employer] threatened to shut off services in your [...] often do you attend chur ch or gnosticism services? Never 04/18/2025 Do you belong to any clubs o r organizations such as latter-day groups, unions, fraternal or athletic groups, or [...] any time in the past 12 m [facility], were you homeless or living in a snf (including now)? No 04/18/2025 Sex and Gender Information Value Date Recorded Sex Assigned at Not on file Legal Sex Male 9:54 AM CDT Gender Identity Not on file Sexual Orientation Not on file Last Filed Vital Signs Vital Sign Reading Time Taken Comments Blood Pressure 130/88 02/28/2025 1:06 PM CDT Pulse 92 02/28/2025 1:06 PM CDT Temperature 36.9 C (98.4 F) 02/28/2025 1:06 PM CDT Respiratory Rate 18 02/28/2025 1:06 PM CDT Oxygen Saturation 98% 02/28/2025 1:06 PM CDT Inhaled Oxygen Concentration - - Weight 109.8 kg (242 lb) 11/24/2024 1:40 PM MINER HELPER Height 166.6 cm (5' 5.6) 02/28/2025 1:06 PM CDT Body Mass Index 38.48 11/24/2024 1:40 PM MINER HELPER Plan of Treatment Health Maintenance Due Date Last Done Comments Influenza Vaccine (#1) 2025 08/02/2024, 2019 Albumin Creatinine Ratio, Urine 06/03/2025 06/03/2024 Foot Exam 06/03/2025 06/03/2024 Well Visit 65+ 08/02/2025 08/02/2024 Hemoglobin A1C 08/30/2025 02/28/2025, 03/, 08/02/2024, Additional history exists Lipid Panel 11/28/2025 11/28/2024, 06/03/2024 Zoster Vaccine (1 of 2) 11/28/2025 Post poned from 2000 (Insurance / Financial) eGFR 11/28/2025 11/28/2024, 06/03/2024 Depression Screening 02/28/2026 02/28/2025, 11/28/2024, 08/02/2024, Additional history exists Fall Risk Assessment 02/28/2026 02/28/2025, 08/02/2024, 06/03/2024 Dilated Eye Exam 04/06/2026 04/06/2025 Covid-19 Vaccine ( season) 2026 10/17/2021, 09/06/2021 Postponed from 05/22/2025 (Patient declined, but will receive in the future) Prostate Cancer Screening-PSA 11/28/2026 11/28/2024 DTaP/Tdap/Td Vaccine (3 - Td or Tdap) 12/07/2026 12/07/2016, 11/03/2007 Colon Cancer Screening-Colonoscopy 07/27/2028 Hepatitis B Screening Completed 07/07/2017 , 01/04/2017, 12/07/2016 Hepatitis C Screening Completed 06/03/2024 Pneumococcal vaccine 65+ Completed 08/02/2024, 07/24 Abdominal Aortic Aneurysm (AAA) Screen Completed 03/16/2025 Goals Goal Patient Goal Type Associated Problems Recent Progress Patient-Stated? Author Diabetes Goal - Patient verbalizes knowledge and ability to manage diabetes ACO Care Management Alyssa De La Torre RN Note: Problem: Knowledge deficit - Diabetes Interventions: - Provide educational materials specific to patient needs. Search [facility] Clinical References for patient-specific educational needs. These can be printed & mailed or sent to patient via [employer]. - Review Diabetes folder in Teams for applicable resources. - Follow up within 1-2 weeks of mailing to review materials and ensure patient understands information provided. Diabetes Goal - Patient is knowledgeable about causes of hyperglycemia and how to prevent and treat the problem ACO Care Management Alyssa De La Torre RN Note: Problem: Red Flag education needed [...] correct amount of medication/insulin. - Review [facility] Clinical References: Diabetic Hyperglycemia; Type 2 Diabetes in Adults; Type 2 Diabetes in the Older Adult. These can be printed and mailed or sent to patient via [employer]. - Review the Diabetes folder in teams [...] there are any medication discrepancies. - Review Epic Clinical References: Hypoglycemia in a Person with Diabetes; Type 2 Diabetes in Adults; Type 2 Diabetes in the Older Adult. These can be printed and mailed or sent to patient via [employer]. - Review the Diabetes folder in teams [...] respond ACO Care Management Alyssa De La Torre RN Note: Problem: Red Flag education needed [...] your provider. - Review the following [facility] Clinical References: Managing Diabetes During Sick Days. This can be printed and mailed or sent to patient via [employer]. Diabetes Goal - Patient will obtain and follow a diabetic action plan ACO Care Management Alyssa De La Torre RN Note: Problem: Inadequate health maintenance related to absence of diabetes action plan Interventions: - Refer to the Diabetes Folder in teams: [facility] Action Plan DM Flyer. Review contents with patient. Send to patient/caregiver via mail or [employer]. - Provide education regarding signs of low [...] review for trends. - Refer to [facility] Clinical References: How to Check Your Blood Sugar; Type 2 Diabetes Management for Adults; Diabetes Type 1: Management; Diabetic Hyperglycemia; etc. These can be printed & mailed or sent to patient via [employer]. - Refer to Diabetes folder in Teams: Blood Sugar Log; Checking Your Blood Sugar; Living Well With Diabetes; When to Call the Doctor, etc. Diabetes Goal - Patients' medication adherence will improve with applicable education/resources ACO Care Management Alyssa De La Torre RN Note: Problem: Diabetes Medication Nonadherence Interventions: - Assess barriers to following the prescribed medication plan. Provide education/resources to reduce these barriers. - Review the Diabetes folder in Teams for available educational resources for this patient. - Refer to [facility] Clinical References: Type 2 Diabetes Management [...] educational materials specific to patient needs. Search [facility] Clinical References for patient-specific educational needs. These can be printed & mailed or sent to patient via [employer]. - Review the Diabetes folder in Teams for available resources: Medications and Prescription Savings Programs Folder. - Schedule follow-up calls to review these materials with patient to ensure understanding. ACO CC Goal - Patient will increase compliance with prescribed medications ACO Care Management Alyssa De La Torre, ROSARIO Note: Problem: Medication non-adherence Interventions: - Address [...] need for assistive devices. - Refer to SW if appropriate and patient is agreeable. RITA General Goal - Patient is knowledgeable about condition when worsening and how to respond ACO Care Management Alyssa De La Torre, RN Note: Problem: Knowledge deficit related to [...] 80% of the time ACO Care Management Alyssa De La Torre, RN Note: Problem: At risk for inadequate nutrition [...] resources as applicable - Refer to O Maintenance Supervisor 2Nd Shift as appropriate Procedures Procedure Name Priority Date/Time Associated Diagnosis Comments DIABETES EYE EXAM Routine 04/06/2025 ABDOMINAL AORTIC ANEURYSM SCREENING Schedule Routine, Read Routine (OP Routine) 03/16/2025 10:19 AM CDT Encounter for abdominal aortic aneurysm (AAA) screening POCT HEMOGLOBIN A1C Routine 02/28/2025 1:32 PM CDT Multiple complications of type 2 diabetes mellitus (HCC) EGFR Routine 11/28/2024 2:09 PM CDT Hypertension associated with diabetes (HCC) LIPID PANEL Routine 11/28/2024 2:09 PM CDT Hypertension associated with diabetes (HCC) PSA SCREEN Routine 11/28/2024 2:09 PM CDT Screening PSA (prostate specific antigen) HEPATITIS C ANTIBODY Routine 06/03/2024 9:57 AM CDT Need for hepatitis C screening test ALBUMIN CREATININE RATIO, URINE Routine 06/03/2024 9:57 AM CDT Type 2 diabetes mellitus without complication, without long-term current use of insulin (HCC) from Last 3 Months or Most Recently Relevant to Health Maintenance Results * DIABETES EYE EXAM (04/06/2025) Historical Provider HEALTH MAINTENANCE Final Result * US Abdominal Aortic Aneurysm Screening (03/16/2025 10:19 AM CDT) Anatomical Region Laterality Modality Abdomen Ultrasound Jason Haas MD IMG US PROCEDURES Final Res ult * (ABNORMAL) POCT hemoglobin A1c (02/28/2025 1:32 PM CDT) Hemoglobin A1C, POC 10.6(A) 4.0 - 5.6 % Blood 02/28/2025 1:32 PM CDT Jason Haas MD POINT OF CARE TEST ORDERABL ES Final Result * eGFR (11/28/2024 2:09 PM CDT) eGFR >90 >=60 mL/min/1. 73 m2 Comment: Interpretive Data Reference Interval Normal >/= 90 mL/min/1.73m2 Mildly decreased* 60 - 89 mL/min/1.73m2 Mildly to moderately decreased 45 - 59 mL/min/1.73m2 Moderately to severely decreased 30 - 44 mL/min/1.73m2 Severely decreased 15 - 29 mL/min/1.73m2 Kidney Failure < 15 mL/min/1.73m2 *Relative to young adult level Estimated glomerular filtration rate is determined by the 2020 CKD-EPI equation recommended by the National Kidney Foundation (A Unifying Approach to GFR Estimation: Recommendations of the NKF-ASK Task Force on Reassessing the Inclusion of Race in Diagnosing Kidney Disease, JASN 2020). The CKD-EPI equation should not be used for patients with unstable renal function and has not been validated in children and those over 70. Current interpretive data was last reviewed 2021. Blood 11/28/2024 2:09 PM CDT 11/28/2024 8:01 PM CDT Jason Haas MD LAB BLOOD ORDERABLES Final Result Performing Organization Address [facility] de Phone Number JACK [phone] [place] [address] * PSA screen (11/28/2024 2:09 PM CDT) PSA-Total 3.10 <=6.20 ng/mL Comment: Interpretive Data AGE SEX REFERENCE INTERVAL 0 minutes-150 years Female None 0 minutes-49 years Male None 50-59 years Male 0-3.90 60-69 years Male 0-5.40 70-79 years Male 0-6.20 80-150 years Male 0-6.20 The Daly PSA Total assay procedure was used. Results from different manufacturers or methods may not be comparable. Serial testing should be performed using the same method. Current interpretive data last revised 22. Blood 11/28/2024 2:09 PM CDT 11/28/2024 7:46 PM CDT Jason Haas MD LAB BLOOD ORDERABLES Final Result Performing Organization Address [facility] [place] Number [place] [phone] [address] [facility] [employer] [place], [place] [id number] * Lipid panel (11/28/2024 2:09 PM CDT) Cholesterol 182 30 - 199 mg/dL Comment: Interpretive Data Ages < or = 19 years Acceptable: <170 mg/dL Borderline high: 170-199 mg/dL High: >or= 200 mg/dL Ages > or = 20 years Desirable: <200 mg/dL Borderline high: 200-239 mg/dL High: >or= 240 mg/dL Literature References: 1. Expert Panel on Integrated Guidelines for Cardiovascular Health and Risk Reduction in Children and Adolescents. Pediatrics 2011;128:S213 2. NCEP Expert Panel. Circulation 2004;110:227 Current Interpretive Data was last revised on 2018. Triglycerides 127 <=149 mg/dL JACK Comment: Interpretive Data Ages < or = 9 years Acceptable: <75 mg/dL Borderline high: 75-99 mg/dL High: >or= 100 mg/dL Ages 10 to 20 years Acceptable: <90 mg/dL Borderline high: 90-129 mg/dL High: >or= 130 mg/dL Ages > or = 20 years Desirable: <150 mg/dL Borderline high: 150-199 mg/dL High: 200-499 mg/dL Very high: >or= 499 mg/dL Literature References: 1. Expert Panel on Integrated Guidelines for Cardiovascular Health and Risk Reduction in Children and Adolescents. Pediatrics 2011;128:S213 2. NCEP Expert Panel. Circulation 2004;110:227 Current Interpretive Data was last revised on 2018. HDL 65 >=40 mg/dL JACK Comment: Interpretive Data Ages < or = 19 years Acceptable: >45 mg/dL Borderline low: 40-45 mg/dL Low: <40 mg/dL Ages > or = 20 years Desirable: >or= 60 mg/dL Low: <40 mg/dL Literature References: 1. Expert Panel on Integrated Guidelines for Cardiovascular Health and Risk Reduction in Children and Adolescents. Pediatrics 2011;128:S213 2. NCEP Expert Panel. Circulation 2004;110:227 Current Interpretive Data was last revised on 2018. LDL, calculated 95 <=129 mg/dL JACK Comment: Interpretive Data Ages < or = 19 years Acceptable: <110 mg/dL Borderline high: 110-129 mg/dL High: >or= 130 mg/dL Ages > or = 20 years Optimal: <100 mg/dL Near optimal: 100-129 mg/dL Borderline high: 130-159 mg/dL High: >160 mg/dL Calculated using the Arya LDL-C estimating equation. This equation was implemented on 2024. Prior to this date LDL-C was estimated using the Friedewald equation. Literature References: 1. Expert Panel on Integrated Guidelines for Cardiovascular Health and Risk Reduction in Children and Adolescents. Pediatrics 2011;128:S213 2. NCEP Expert Panel. Circulation 2004;110:227 3. Arya Vanessa et al. FELIX Cardiol. 2020 January 19;5(5):540-548. doi: 10.1001/jamacardio.2020.0013 Current Interpretive Data was last revised on 2024. Non-HDL Cholesterol 117 mg/dL JACK LORD Comment: Interpretive Data Ages < or = 19 years Acceptable: <120 mg/dL Borderline high: 120-144 mg/dL High: >145 mg/dL Ages > or = 20 years When triglycerides are >200 mg/dL, Non-HDL cholesterol is a secondary target of therapy with treatment goals that are 30 mg/dL greater than the LDL cholesterol target. Literature References: 1. Expert Panel on Integrated Guidelines for Cardiovascular Health and Risk Reduction in Children and Adolescents. Pediatrics 2011;128:S213 2. NCEP Expert Panel. Circulation 2004;110:227 Current Interpretive Data was last revised on 2018. Chol/HDL ratio 3 JACK Blood 11/28/2024 2:09 PM CDT 11/28/2024 7:46 PM CDT Jason Haas MD LAB BLOOD ORDERABLES Final Result JACK [id number] [address] Department [place] [address] * Hepatitis C antibody Blood (06/03/2024 9:57 AM CDT) Hep C Ab Nonreactive Nonreactive Comment: Interpretive Data Nonreactive: Antibodies to HCV not detected. Does NOT exclude the possibility of recent exposure to HCV. Equivocal: Equivocal for HCV antibodies. Supplemental molecular testing will be automatically performed to determine infection status in accordance with current CDC screening recommendations. Reactive: Positive for HCV antibodies. This may represent current or past HCV infection. Supplemental molecular testing will be automatically performed to determine current infection status in accordance with current CDC screening recommendations. Interpretive data was last revised on 2019. Blood 06/03/2024 9:57 AM CDT 06/03/2024 5:14 PM CDT us Elvira Hernandez NP LAB MICROBIOLOGY - GENERAL ORDER BRANNON Final Result Performing Organization Address [facility] de Phone Number JACK LORD [phone] [address] [place] [address] * Albumin Creatinine Ratio, Urine (06/03/2024 9:57 AM CDT) Albumin Ur 45.8 mg/L Comment: Interpretive Data No reference range established. Current interpretive data was last revised 2019. Creatinine Ur 198.0 mg/dL JACK Comment: Interpretive Data No reference range established. Current interpretive data was last revised 2019. Albumin Creatinine Ratio, Ur 23 1 - 29 mg/g JACK Urine 06/03/2024 9:57 AM CDT 06/03/2024 5:14 PM CDT us Elvira Hernandez NP LAB URINE ORDERABLES Final Resul t Performing Organization Address [facility] de Phone Number USHACANDY LORD [address] [place] [address] from Last 3 Months or Most Recently Relevant to Health Maintenance Insurance [facility] MEDICARE HMO HUMAN MEDICARE HMO Care Teams Supplemental Nurse Relationship Specialty Start Date End Date Jason Haas MD [address] [facility] [address] [place] [address] PCP - General Family Medicine 06/03/24 Elvira Hernandez NP [address] [facility] [address] [place] [address] Nurse Practitioner Family Medicine 06/03/24 Alyssa Milligan RN [address] [place] [address] [address] [place] [address] Silviculture Forester 04/14/25
--- OUTSIDE RECORDS SUMMARY | 2025-07-25 06:17 | XMS_ITS | Encounter Summary ---
Author Organization [facility] Healthcare Address [address] [place] [address] Care Team Providers Care Employee Development Manager Name Role Phone Jason Haas MD Primary Care Provider Elvira Hernandez NP Unavailable Alyssa Milligan RN Unavailable [phone] Reason for Visit * Reason Onset Date Comments Additional Services Or Orders 07/19/2025 Encounter Details Date Type Department Care Team (Late st Contact Info) Description 07/19/2025 Telephone [facility] Primary Care at [address] [address] Jason Haas MD [address] [place] [address] [address] [place] [address] Additional Services Or Orders Social History Tobacco Use Types Packs/Day Years [...] materials from doctor or pharmacy Never 09/29/2024 [facility] Utilities Answer Date Recorded In the past 12 months has th e electric, gas, oil, or water [employer] threatened to shut off services in your [...] often do you attend chur ch or quaker services? Never 04/18/2025 Do you belong to any clubs o r organizations such as judaism groups, unions, fraternal or athletic groups, or [...] any time in the past 12 m [facility], were you homeless or living in a care home (including now)? No 04/18/2025 Sex and Gender Information Value Date Recorded Sex Assigned at Not on file Legal Sex Male 9:54 AM CDT Gender Identity Not on file Sexual Orientation Not on file documented as of this encounter Miscellaneous Notes * Telephone Encounter - Bela Pike MA - 07/20/2025 3:47 PM CDT LMOM for pt to call office to try to find out which company the worker works for and if he may wantto be referred to another company * Telephone Encounter - Kathryn Zavaleta - 07/19/2025 2:14 PM CDT Additional Services or Orders Type of Service Requested:Home Health Duration/Number of Visits: N/a Is a verbal order acceptable? N/a Reason for Request (e.g. condition/symptom, date of COVID exposure if applicable): Pt states he is in a wheelchair and needing help with daily activities around the house and transferring. Details Regarding Additional Services (e.g. type of home health, type of equipment, type of test, etc.): Nursing Where will services be performed? (if outside of the practice, facility name, address, phone/fax offacility): Unknown Additional Comments: Pt states he has not been receiving Home health, states that a worker came outlast week and stated she had to leave due to court and that she does not work on weekends. He states that worker came back on Thursday and offered him 25 dollars to say that she had been coming by. Please reference encounter from 07/07. Does message need to be routed? Yes-Action Needed documented in this encounter Plan of Treatment [...] & mailed or sent to patient via eTelemetry. - Review Diabetes folder in Teams for [...] the correct amount of medication/insulin. - Review [facility] Clinical References: Diabetic Hyperglycemia; Type 2 Diabetes in Adults; Type 2 Diabetes in the Older Adult. These can be printed and mailed or sent to patient via eTelemetry. - Review the Diabetes folder in teams [...] and mailed or sent to patient via eTelemetry. - Review the Diabetes folder in teams for available resources: Low Blood Sugar Fact Sheet. Diabetes Goal - Coordination with diabetes provider will help improve patient self management status ACO Care Management Alyssa De La Torre, ROSARIO Note: Problem: Diabetes Nonadherence: Notify Provider Interventions: [...] Alyssa De La Torre, ROSARIO Note: Problem: Red Flag education needed - [...] with your provider. - Review the following [facility] Clinical References: Managing Diabetes During Sick Days. This can be printed and mailed or sent to patient via eTelemetry. Diabetes Goal - Patient will obtain and follow a diabetic action plan ACO Care Management Alyssa De La Torre RN Note: Problem: Inadequate health maintenance related to absence of diabetes action plan Interventions: - Refer to the Diabetes Folder in teams: [facility] Action Plan DM Flyer. Review contents with patient. Send to patient/caregiver via mail or eTelemetry. - Provide education regarding signs of low [...] and review for trends. - Refer to [facility] Clinical References: How to Check Your Blood Sugar; Type 2 Diabetes Management for Adults; Diabetes Type 1: Management; Diabetic Hyperglycemia; etc. These can be printed & mailed or sent to patient via eTelemetry. - Refer to Diabetes folder in Teams: [...] resources for this patient. - Refer to [facility] Clinical References: Type 2 Diabetes Management in Adults or Type 2 Diabetes in Older Adults; Non Insulin Pen Devices for Diabetes, etc. These can be mailed to patient or sent to their [employer] (if applicable). - Schedule follow-up call to [...] educational materials specific to patient needs. Search [facility] Clinical References for patient-specific educational needs. These can be printed & mailed or sent to patient via eTelemetry. - Review the Diabetes folder in Teams [...] La Torre RN Note: Problem: Knowledge deficit related to [...] Alyssa De La Torre, ROSARIO Note: Problem: At risk for inadequate [...] resources as applicable - Refer to O Banking Assistant as appropriate documented as of this encounter Visit Diagnoses Not on filedocumented in this encounter Care Teams Employee Development Manager Relationship Specialty Start Date End Date Jason Haas MD [address] [place] [address] PCP - General Family Medicine 06/03/24 Elvira Hernandez NP [address] [place] [address] Nurse Practitioner Family Medicine 06/03/24 Alyssa Milligan RN [address] [place] [address] Travel [employer] 04/14/25 documented as of this encounter
--- OUTSIDE RECORDS SUMMARY | 2025-07-25 06:17 | XMS_ITS | Clinical Summary ---
Author Organization [facility] Address [address] [place] [address] Care Team Providers Care Medical Records Coordinator Name Role Phone Unavailable Primary Care Provider Unavailabl e Allergies No known active allergies Medications glycerin-hyprom ellose-peg 400 (ARTIFICIAL TEARS) 0.2-0.2-1 % solution Administer 2 drops (0.1667 mL total) into both eyes every 2 (two) hours as needed (dry eyes). 9.5 mL 0 Active Active Problems Problem Noted Date Diagnosed Date Spinal stenosis 08/21/2020 Social History Tobacco Use Types Packs/Day Years Used Date Smoking Tobacco: Never Sex and Gender Information Value Date Recorded Sex Assigned at Not on file Legal Sex Male 1:55 PM EST Gender Identity Not on file Sexual Orientation Not on file Last Filed Vital Signs Vital Sign Reading Time Taken Comments Blood Pressure 115/73 09/11/2020 8:47 AM INVENTORY TAKER Pulse 85 09/11/2020 8:47 AM INVENTORY TAKER Temperature 36.3 C (97.3 F) 09/11/2020 8:47 AM INVENTORY TAKER Respiratory Rate 17 09/11/2020 8:47 AM INVENTORY TAKER Oxygen Saturation 99% 09/11/2020 8:47 AM INVENTORY TAKER Inhaled Oxygen Concentration - - Weight 88.5 kg (195 lb) 09/09/2020 5:01 AM INVENTORY TAKER Height 170.2 cm (5' 7) 08/21/2020 9:59 PM INVENTORY TAKER Body Mass Index 30.54 08/21/2020 9:59 PM INVENTORY TAKER Plan of Treatment Health Maintenance Due Date Last Done Comments CT Colonography 1950 Colonoscopy 1950 Colorectal Cancer Screening 1950 FIT-DNA (Cologuard) 1950 FIT 1950 FOBT 1950 Sigmoidoscopy 1950 Annual Visit Topic 1951 Hepatitis C Screening 1968 DTaP/Tdap/Td Vaccines (1 - Tdap) 1969 Pneumococcal Vaccine: 65+ Ye ars (1 of 2 - PCV) 2000 HIB Vaccines Aged Out No longer eligi ble based on patient's age to complete this topic HPV Vaccines Aged Out No longer eligi ble based on patient's age to complete this topic Hepatitis A Vaccines Aged Out No long er eligible based on patient's age to complete this topic Hepatitis B Vaccines Aged Out No long er eligible based on patient's age to complete this topic IPV Vaccines Aged Out No longer eligi ble based on patient's age to complete this topic Meningococcal Vaccine Aged Out No [place] eligible based on patient's age to complete this topic Advance Directives * Full Resuscitation (Latest Code Status on File) Date Activated Date Inactivated Comments 08/21/2020 9:43 PM 09/11/2020 8:13 PM
--- OUTSIDE RECORDS SUMMARY | 2025-07-25 06:17 | XMS_ITS | Clinical Summary ---
Author Organization [facility] Address [address] [place] [address] Care Team Providers Care Telephone Directory Deliverer Name Role Phone Unavailable Primary Care Provider Unavailabl e Source Comments [facility],non-owned Affiliates and Associated Physician Practices is amultiple site organization consisting of ambulatory clinics and hospital sitesin [place], [place], [place]. This disclosure is being madepursuant to the Care Everywhere program and may not contain all information available regarding this patient. Last updated 18.[facility] [employer] Allergies No known active allergies Medications * Be aware that medications may not be up to date on this document. Alwaysverify current medications with the patient. senna-docusate (SENOKOT-S) 8.6-50 MG tablet Take 2 tablets by mouth 2 times daily 0 0 Active Additional Information Patient not taking.Reported on 10/31/2020 HYDROcodone-prem taminophen (NORCO) 5-325 MG tablet Take 1 tablet by mouth every 6 hours as needed 20 tablet 0 Active losartan (COZAAR) 50 MG tablet Take 1 tablet by mouth once daily 0 Active Additional Information Patient not taking.Reported on 10/31/2020 sodium chloride 1 GM tablet Take 3 tablets by mouth 3 times daily with meals Wean to off, keep na 135-145 0 0 Active Additional Information Patient not taking.Reported on 10/31/2020 pioglitazone (ACTOS) 30 MG tablet 0 Active gabapentin (NEURONTIN) 300 MG capsuleIndicati ons:Nerve pain 300 PO TID for 3 weeks then increase to 600mg TID 270 capsule 3 1 Active amLODIPine (NORVASC) 5 MG tablet Take 5 mg by mouth once daily 1 Active Alcohol Swabs (EASY TOUCH ALCOHOL PREP MEDIUM) 70 % Apply 1 applicator to affected area as directed 1 Active Active Problems Problem Noted Date Diagnosed Date Preventative health care 01/02/2021 BMI 33.0-33.9,adult 01/02/2021 Cervical spinal stenosis 08/02/2020 Essential hypertension 08/02/2020 Fall 08/02/2020 Myelopathy 08/01/2020 Spondylolisthesis of lumbar region 12/18/2014 Low back pain with right-sided sciatica 12/19/19 15 Immunizations Immunization Administration Dates Next Due INFLUENZA VACCINE, HIGH-DOSE , QUADR. 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 Gender Identity Not on file Sexual Orientation Not on file Last Filed Vital Signs Vital Sign Reading Time Taken Comments Blood Pressure 197/117 10/31/2020 10:02 AM WET MACHINE OPERATOR Pulse 82 10/31/2020 10:02 AM WET MACHINE OPERATOR Temperature 36.7 C (98 F) 10/31/2020 10:02 AM WET MACHINE OPERATOR Respiratory Rate 18 10/31/2020 10:02 AM WET MACHINE OPERATOR Oxygen Saturation 100% 10/31/2020 10:02 AM WET MACHINE OPERATOR Inhaled Oxygen Concentration - - Weight 93 kg (205 lb) 10/31/2020 10:02 AM WET MACHINE OPERATOR Height 167.6 cm (5' 6) 10/31/2020 10:02 AM WET MACHINE OPERATOR Body Mass Index 33.09 10/31/2020 10:02 AM WET MACHINE OPERATOR Plan of Treatment Health Maintenance Due Date Last Done Comments COLOGUARD (AGES 45-75) - COLON CA SCREENING 1950 COLON MONITORING 1950 COLONOSCOPY - COLON CA SCREENING 1950 CT COLONOGRAPHY - COLON CA SCREENING 1950 Colorectal Cancer Screening 1950 FIT - COLON CA SCREENING 1950 FLEX SIG - COLON CA SCREENING 1950 LIPID TESTING 1950 HEPATITIS C SCREENING 11/01/1968 DTAP/TDAP/TD VACCINES (1 - Tdap) 1969 PNEUMOCOCCAL VACCINE 50+ (1 of 1 - PCV) 2000 ZOSTER VACCINE (1 of 2) 2000 AAA SCREENING 2015 SCREENING FOR DIABETES 09/10/2023 , 08/27/2020, 08/22/2020, Additional history exists DEPRESSION SCREENING 09/21/2024 COVID-19 VACCINE (1 - season) 2025 INFLUENZA VACCINE (#1) 2025 08/07/2020 Respiratory Syncytial Virus (RSV) Vaccine Pt: or over 60 yrs (1 - 1-dose 75+ series) 2025 HEPATITIS B VACCINE Aged Out No longe r eligible based on patient's age to complete this topic HIB VACCINE Aged Out No longer eligi ble based on patient's age to complete this topic HPV VACCINE Aged Out No longer eligi ble based on patient's age to complete this topic MENINGOCOCCAL (Group B) VACCINE SHARED DECISION-MAKING Aged Out No longer eligible based on patient's age to complete this topic MENINGOCOCCAL GROUPS A/C/Y/W VACCINE Aged Out No longer eligible based on patient's age to complete this topic Medical Devices Implanted Type Area Graphic Art Sales Representative Device Identifier Shelf Expiration Date Model / Serial / Lot Screw Set Std Spne Implanted:Qty: 8 on 08/06/2020 by Vinny Marti MD at [facility] N/A: Spine Cervical [employer] [id number] / / Screw 3.5mm 14mm Ma Spne Bone Implanted:Qty: 4 on 08/06/2020 by Vinny Marti MD at [facility] N/A: Spine Cervical Medtronic [employer] [id number] / / Screw 3.5mm 16mm Ma Spne Bone Implanted:Qty: 2 on 08/06/2020 by Vinny Marti MD at [facility] N/A: Spine Cervical Med[employer]onic [employer] [id number] / / Screw 3.5mm 22mm Ma Spne Bone Implanted:Qty: 1 on 08/06/2020 by Vinny Marti MD at [facility] N/A: Spine Cervical Medtronic [employer] [id number] / / Screw 3.5mm 20mm Ma Spne Bone Implanted:Qty: 1 on 08/06/2020 by Vinny Marti MD at [facility] N/A: Spine Cervical Medtronic [employer] [id number] / / Chema Spnl 60mm 3.5mm Pcut Implanted:Qty: 2 on 08/06/2020 by Vinny Marti MD at [facility] N/A: Spine Cervical Medtronic Sofamor [employer] Spine [id number] / / Graft Bone Grftn Dbm 5cc Ptty Jr - [id number] Implanted:Qty: 1 on 08/06/2020 by Vinny Marti MD at [facility] N/A: Spine Cervical [employer] 02/28/2023 [id number] / [id number] / Procedures Procedure Name Priority Date/Time Associated Diagnosis Comments BASIC METABOLIC PANEL (CALCIUM TOTAL) Routine 09/10/2020 4:59 AM WET MACHINE OPERATOR from Last 3 Months or Most Recently Relevant to Health Maintenance Results * (ABNORMAL) BASIC METABOLIC PANEL (CALCIUM TOTAL) (09/10/2020 4:59 AM WET MACHINE OPERATOR) Glucose 136(H) 70 - 105 mg/dL 09/10/2020 7:24 AM [facility] Sodium 135(L) 136 - 145 mmol/L 09/10/2020 7:24 AM WET MACHINE OPERATOR [facility] Potassium 4.4 3.5 - 5.1 mmol/L 09/10/2020 7:24 AM [facility] Chloride 103 98 - 107 mmol/L 09/10/2020 7:24 AM [facility] CO2 23 23 - 31 mmol/L 09/10/2020 7:24 AM [facility] Calcium 8.8 8.4 - 10.4 mg/dL 09/10/2020 7:24 AM [facility] Anion Gap 9 8 - 18 mmol/L 09/10/2020 7:24 AM [facility] Comment:Attention clinician: Reference Range change. BUN 12 8.4 - 25.7 mg/dL 09/10/2020 7:24 AM [facility] Creatinine 0.77 0.72 - 1.25 mg/dL 09/10/2020 7:24 AM [facility] eGFR by MDRD >60 >60 mL/min/1.7 3m2 09/10/2020 7:24 AM [facility] eGFR by MDRD >60 >60 mL/min/1.7 3m2 09/10/2020 7:24 AM [facility] Blood BLOOD SPECIMEN / Unknown 09/10/2020 4:59 AM WET MACHINE OPERATOR 09/10/2020 6:58 AM WET MACHINE OPERATOR Ally Potter MD LAB - CHEMISTRY ORDERABLES Fin al Result [facility] [address] [place] [address] from Last 3 Months or Most Recently Relevant to Health Maintenance Insurance [facility] Advance Directives * Full Code (Latest Code Status on File) Date Activated Date Inactivated Comments 08/22/2020 8:45 AM 09/11/2020 6:14 PM * Full Code Date Activated Date Inactivated Comments 08/02/2020 10:03 PM 08/21/2020 7:58 PM
--- NOTE | 2025-07-25 06:39 | PC.NURSE ---
Pt lives at home alone and cannot care for himself. Pt has large sacral wound d/t being non ambulatory and living in his wheelchair. Pt states that he used to have home health but the stopped sending people 2-3 months ago.
[2025-07-25] MEDS: LACTATED RINGERS 1,000 ML 999 ML IV CONT ×2 (07:16→07:17)
[2025-07-25] MEDS: LACTATED RINGERS 900 ML 999 ML IV CONT (07:17)
[2025-07-25 07:18] VITALS: BP 139/55; PULSE 124; RESP 23; TEMP 36.6; O2SAT 98
[2025-07-25] MEDS: PIPERACILLIN/TAZOBACTAM SOD 4.5 GM in SODIUM CHLORIDE 0.9% IV 100 ML 200 ML IVPB (08:01)
[2025-07-25 08:14] LABS: Alanine Aminotransferase 26 U/L (6-50); Albumin Level 3.4 g/dL (3.5-5.1); Alkaline Phosphatase 73 U/L (38-126); Anion Gap 12 mmol/L (4-12); Aspartate Amino Transferase 46 U/L (17-59); Bilirubin,Total 1.0 mg/dL (0.2-1.3); Blood Urea Nitrogen 31 mg/dL (9-20); Calcium 8.9 mg/dL (8.4-10.2); Carbon Dioxide 22 mmol/L (22-30); Chloride 91 mmol/L (98-107); Estimated CRCL calculation 80 ml/min; Estimated Glomerular Filt Rate > 60; Glucose 351 mg/dL (65-110); Potassium 4.9 mmol/L (3.4-5.0); Sodium 125 mmol/L (137-145); Total Protein 6.9 g/dL (6.3-8.2)
[2025-07-25 08:16] LABS: INR 1.3; Prothrombin Time 15.9 Seconds (11.1-14.7)
[2025-07-25 08:20] LABS: Partial Thromboplastin Time 30.3 Seconds (22.3-36.8)
[2025-07-25 08:30] LABS: CRP 16.0 mg/dL (<1.0); Creatine Kinase 2457 U/L (55-170)
[2025-07-25] MEDS: VANCOMYCIN 1,250 MG/NS 250 ML 1,250 MG/250 ML BAG 166.67 MG IVPB ×2 (10:11→11:57)
[2025-07-25 11:05] VITALS: BP 151/81; PULSE 115; RESP 20; O2SAT 100
--- NOTE | 2025-07-25 11:08 | PC.NURSE ---
pt accepted by Dr. Bee at [facility]. report called and spoke with ROSARIO Silvestre. National Secretary calling for transport.
[2025-07-25 11:57] VITALS: BP 132/71; PULSE 120; RESP 22; O2SAT 96
== END 2025-07-25 13:38 | disposition short-term general hospital (02) ==
PROVIDERS: Student in an Organized Health Care Education/Training Program; Emergency Provider Emergency Medicine
DX: A41.9 Sepsis, unspecified organism (principal); L89.159 Pressure ulcer of sacral region, unspecified stage; R53.81 Other malaise; R62.7 Adult failure to thrive; Z68.33 Body mass index [BMI] 33.0-33.9, adult; M85.88 Other specified disorders of bone density and structure, other site; R94.31 Abnormal electrocardiogram [ECG] [EKG]; R00.0 Tachycardia, unspecified
CPT/HCPCS: 36415; 71045; 74177; 80053; 81001; 82550; 83605; 85025; 85610; 85730; 86140; 87040; 93005; 96365; 96366; 96367; 99285; J2543; J3373; J7120; Q9967